=== PATIENT | female | born 1980 | race Caucasian/White ===

== ENCOUNTER 2017-01-24 12:29 | Emergency (ER) | payer BC, OTHER ==
[2017-01-24 12:41] VITALS: BP 123/88; PULSE 73; TEMP 98; BMI 25.2
--- NOTE | 2017-01-24 13:37 | PDOC ---
History of Present Illness - General Chief Complaint: Eye Problem Stated Complaint: PINK EYE Time Seen by Provider: 01/24/17 12:59 History Source: Patient Exam Limitations: No Limitations - History of Present Illness Initial Comments: 01/24/17 13:38 Mother came with daughter both with complaints of severe ALLERGIC rhinitis and ALLERGIC conjunctivitis. [facility] suffer from seasonal ALLERGIES this time of year but are progressively becoming worse. States has used [id number] Flonase, ophthalmic drops, and antihistamines with minimal resolved. States Kingsley having difficulty breathing and has some minor facial swelling. Denies fever, cough, but has excessive runny nose with clear drainage 01/24/17 13:42 01/24/17 13:44 01/24/17 14:49 Timing/Duration: unsure Severity: mild Associated Symptoms: reports: denies symptoms, headaches (sinus ), malaise. denies: cough, fever/chills Past History - Travel Traveled outside of the country in the last 30 days: No Close contact w/someone who was outside of country & ill: No - Past Medical History Allergies/Adverse Reactions: Allergies Allergy/AdvReac Type Severity Reaction Status Date / Time Penicillins Allergy Hives Verified 01/24/17 12:38 Home Medications: Ambulatory Orders Cetirizine HCl/Pseudoephedrine [Allergy+Congestion Relf-D Tab] 1 each PO DAILY # 30 tab 01/24/17 Prednisone [Deltasone -] 20 mg PO BID #10 tablet 01/24/17 Other medical history: none - Surgical History Abdominal Surgery: Yes (HERNIA) - Immunization History Immunization Up to Date: Yes - Psycho/Social/Smoking Cessation Hx Anxiety: No Suicidal Ideation: No Smoking Status: No Smoking History: Never smoked Have you smoked in the past 12 months: No Number of Cigarettes Smoked Daily: 0 Information on smoking cessation initiated: No Hx Alcohol Use: No Drug/Substance Use Hx: No Substance Use Type: None Review of Systems - Review of Systems Able to Perform ROS?: Yes Is the patient limited Liberian proficient: Yes Constitutional: Yes: Symptoms Reported, See HPI, Malaise. No: Fever HEENTM: Yes: Symptoms Reported, See HPI, Tearing, Nose Congestion Respiratory: Yes: Symptoms reported, See HPI, Cough. No: Wheezing Integumentary: Yes: Symptoms Reported, Pruritus All Other Systems: Reviewed and Negative *Physical Exam - Vital Signs Last Vital Signs Temp Pulse Resp BP Pulse Ox 98.0 F 73 18 123/88 100 01/24/17 12:39 01/24/17 12:39 01/24/17 12:39 01/24/17 12:39 01/24/17 12:39 - Physical Exam General Appearance: Yes: Nourished, Appropriately Dressed, Apparent Distress, Mild Distress HEENT: positive: DAJUAN (erythematous bilaterally with conjunctival edema and tearing, clear with swollen lids), TMs Normal (congested but landmarks easily visualized), Nasal Congestion, Rhinorrhea, Sinus Tenderness. negative: Normal ENT Inspection, Pharyngeal Erythema Neck: positive: Supple. negative: Tender Respiratory/Chest: positive: Lungs Clear, Normal Breath Sounds Extremity: positive: Normal Capillary Refill Integumentary: positive: Dry, Warm Medical Decision Making - Medical Decision Making 01/24/17 13:38 *DC/Admit/Observation/Transfer Diagnosis at time of Disposition: Allergic conjunctivitis and rhinitis Qualifiers: Laterality: bilateral Qualified Code(s): H10.13 - Acute atopic conjunctivitis, bilateral - Discharge Dispostion Disposition: HOME Condition at time of disposition: Stable Admit: No - Prescriptions Prescriptions: Cetirizine HCl/Pseudoephedrine [Allergy+Congestion Relf-D Tab] 1 each PO DAILY # 30 tab Prednisone [Deltasone -] 20 mg PO BID #10 tablet - Referrals Referrals: Saul Witt MD [Primary Care Provider] - - Patient Instructions Printed Discharge Instructions: DI for Allergic Rhinitis Additional Instructions: Rest, drink lots of fluids: Teas, water, soups Saltwater gargles. Consider humidifier in room at night Steamy showers/seem to face break up mucus Avoid contact with allergens, exposure to pollens, close windows on a windy day Lots of handwashing and good hygiene Continue [id number] medications for symptomatic relief- may use allergic eyedrops for itching I Continue antihistamines daily until pollen season is over; Zyrtec, Claritin, Jesenia during the daytime and Benadryl at nighttime as will make sleepy Tylenol or Motrin for fever and pain Followup with private physician in one to 2 days as needed Consider following up with an punch press feeder/concrete mixer operator for skin testing and possible allergy shots Return to emergency department for worsened symptoms, fevers, dehydration Continue prednisone 40 mg daily for 5 days - Post Discharge Activity Work/School Note: Back to Work
== END 2017-01-24 13:53 | disposition home or self-care (01) ==
LOC: JERFT 12:29
DX: H10.13 Acute atopic conjunctivitis, bilateral (principal); J30.2 Other seasonal allergic rhinitis
CPT/HCPCS: 99281-25

== ENCOUNTER 2017-02-14 18:35 | Emergency (ER) | payer BC, OTHER ==
[2017-02-14 18:50] VITALS: BP 102/65; PULSE 77; TEMP 98.6; BMI 26.0
--- NOTE | 2017-02-14 19:28 | PDOC ---
History of Present Illness - General Chief Complaint: Eye Problem Stated Complaint: EYE PROBLEM Time Seen by Provider: 02/14/17 19:21 History Source: Patient Exam Limitations: No Limitations - History of Present Illness Initial Comments: 02/14/17 19:21 36 yr female c/o itchy watery eyes with stringy discharge for one month as well as nasal congestion, sneezing. no fever or chills. Severity: mild Past History - Past Medical History Allergies/Adverse Reactions: Allergies Allergy/AdvReac Type Severity Reaction Status Date / Time Penicillins Allergy Hives Verified 02/14/17 18:50 Home Medications: Ambulatory Orders Cetirizine HCl/Pseudoephedrine [Allergy+Congestion Relf-D Tab] 1 each PO DAILY # 30 tab 01/24/17 Prednisone [Deltasone -] 20 mg PO BID #10 tablet 01/24/17 Ketotifen Fumarate 1 drop OP BID #1 bottle 02/14/17 Other medical history: allergies - Surgical History Abdominal Surgery: Yes (HERNIA) - Immunization History Immunization Up to Date: Yes - Psycho/Social/Smoking Cessation Hx Anxiety: No Suicidal Ideation: No Smoking Status: No Smoking History: Never smoked Have you smoked in the past 12 months: No Number of Cigarettes Smoked Daily: 0 Hx Alcohol Use: No Drug/Substance Use Hx: No Substance Use Type: None Review of Systems - Review of Systems Able to Perform ROS?: Yes Is the patient limited Wallisian proficient: No Constitutional: No: Symptoms Reported HEENTM: Yes: See HPI Respiratory: No: See HPI *Physical Exam - Vital Signs Last Vital Signs Temp Pulse Resp BP Pulse Ox 98.6 F 77 20 102/65 99 02/14/17 18:48 02/14/17 18:48 02/14/17 18:48 02/14/17 18:48 02/14/17 18:48 - Physical Exam General Appearance: Yes: Nourished, Appropriately Dressed HEENT: positive: EOMI, DAJUAN, Normal Voice, TMs Normal, Pharynx Normal, Other ( bilateral conjunctival erythema, watery white stringy discharge) Neck: positive: Supple Respiratory/Chest: positive: Lungs Clear, Normal Breath Sounds Cardiovascular: positive: Regular Rhythm, Regular Rate Gastrointestinal/Abdominal: positive: Normal Bowel Sounds, Soft Musculoskeletal: positive: Normal Inspection Extremity: positive: Normal Capillary Refill, Normal Inspection, Normal Range of Motion Integumentary: positive: Normal Color, Dry, Warm Neurologic: positive: Fully Oriented, Alert, Normal Mood/Affect, Normal Response , Motor Strength 01/29 Medical Decision Making - Medical Decision Making 02/14/17 19:23 cc: itchy watery eyes with stringing discharge no fever or chills will prescribe pataday eye drops pt takes claritin *DC/Admit/Observation/Transfer Diagnosis at time of Disposition: Allergic conjunctivitis of both eyes - Discharge Dispostion Disposition: HOME Condition at time of disposition: Good - Prescriptions Prescriptions: Ketotifen Fumarate 1 drop OP BID #1 bottle - Patient Instructions Additional Instructions: use the eye drops as prescribed wash hands frequently to prevent irritating your eyes follow with the automotive alignment specialist for follow up
== END 2017-02-14 19:41 | disposition home or self-care (01) ==
LOC: JERFT 18:35
DX: H10.13 Acute atopic conjunctivitis, bilateral (principal)
CPT/HCPCS: 99281-25

== ENCOUNTER 2017-04-17 19:51 | Emergency (ER) | payer BC, OTHER ==
[2017-04-17 20:02] VITALS: BP 115/71; PULSE 75; TEMP 98.7; BMI 26.2
--- NOTE | 2017-04-17 20:59 | PDOC ---
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 Dates may have increased her weight with her workouts, and performs frequent heavy lifting, strenuous exercise, and strong knee exercises. Has never had an injury to her knee that she is aware of, but does not feel unstable. No recent popping or instability Occurred: reports: last week Severity: reports: moderate Pain Location: reports: lower extremity (right knee ) Associated Symptoms (Fall): denies symptoms Past History - Travel Traveled outside of the country in the last 30 days: No Close contact w/someone who was outside of country & ill: No - Past Medical History Allergies/Adverse Reactions: Allergies Allergy/AdvReac Type Severity Reaction Status Date / Time Penicillins Allergy Hives Verified 04/17/17 20:01 Home Medications: Ambulatory Orders Cetirizine HCl/Pseudoephedrine [Allergy+Congestion Relf-D Tab] 1 each PO DAILY # 30 tab 01/24/17 Prednisone [Deltasone -] 20 mg PO BID #10 tablet 01/24/17 Clobetasol Propionate/Emoll [Clobetasol Emollient 0.05% Crm] 45 gm TP BID #1 cream..g. 02/14/17 Ketotifen Fumarate 1 drop OP BID #1 bottle 02/14/17 Naproxen [Naprosyn -] 500 mg PO BID #14 tablet 04/17/17 Other medical history: denies - Surgical History Abdominal Surgery: Yes (HERNIA) - Immunization History Immunization Up to Date: Yes - Psycho/Social/Smoking Cessation Hx Anxiety: No Suicidal Ideation: No Smoking Status: No Smoking History: Never smoked Have you smoked in the past 12 months: No Number of Cigarettes Smoked Daily: 0 Hx Alcohol Use: No Drug/Substance Use Hx: No Substance Use Type: None Review of Systems - Review of Systems Able to Perform ROS?: Yes Is the patient limited Costa Rican proficient: Yes Constitutional: Yes: See HPI. No: Symptoms Reported, Fever, Malaise HEENTM: Yes: Symptoms Reported, Nose Congestion Respiratory: Yes: Symptoms reported, See HPI, Cough (moist non productive ) Musculoskeletal: Yes: Symptoms Reported, See HPI, Joint Pain, Joint Swelling, Muscle Pain Integumentary: Yes: See HPI. No: Symptoms Reported All Other Systems: Reviewed and Negative *Physical Exam - Vital Signs Last Vital Signs Temp Pulse Resp BP Pulse Ox 98.7 F 75 18 115/71 99 04/17/17 19:59 04/17/17 19:59 04/17/17 19:59 04/17/17 19:59 04/17/17 19:59 - Physical Exam General Appearance: Yes: Appropriately Dressed, Apparent Distress HEENT: positive: DAJUAN, Normal ENT Inspection, TMs Normal, Pharynx Normal Neck: positive: Supple Musculoskeletal: positive: Normal Inspection, Decreased Range of Motion ( patient with tenderness reproduced to posterior fossa, however strong quadricep contraction and no true reproduced tenderness along the MCL or LCL. No crepitus or step-offs of patella, range of motion is intact and no obvious anterior drawer sign. Neurovascular intact distal to the knee.). 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 Recommended knee immobilizer, NSAIDs and follow-up with orthopedist *DC/Admit/Observation/Transfer Diagnosis at time of Disposition: Strain of right knee Qualifiers: Encounter type: initial encounter Qualified Code(s): S86.911A - Strain of unspecified muscle(s) and tendon(s) at lower leg level, right leg, initial encounter - Discharge Dispostion Disposition: HOME Condition at time of disposition: Stable Admit: No - Referrals Referrals: Saul Witt MD [Primary Care Provider] - George Miller MD [Staff Physician] - - Patient Instructions Printed Discharge Instructions: DI for Knee Pain Additional Instructions: Rest, ice to area on and off for 15 minutes 4-6 times a day Avoid heavy lifting or exercise until pain and swelling is resolved or until further directed Keep area highly elevated to reduce swelling Use splints/Lalito wrap as directed Followup with orthopedist in one to 2 days if not improving, if significantly improved may wait one week for followup with orthopedist May use Naprosyn 1 - 500 mg tablet every 8 hours as needed for swelling and pain - Post Discharge Activity Work/School Note: Back to Work
== END 2017-04-17 22:25 | disposition home or self-care (01) ==
LOC: JERFT 19:51
DX: S86.911A Strain of unspecified muscle(s) and tendon(s) at lower leg level, right leg, initial encounter (principal); X50.0XXA Overexertion from strenuous movement or load, initial encounter; X50.3XXA Overexertion from repetitive movements, initial encounter; Y93.B9 Activity, other involving muscle strengthening exercises; Y92.39 Other specified sports and athletic area as the place of occurrence of the external cause
CPT/HCPCS: 99281-25

== ENCOUNTER 2019-06-05 21:42 | Emergency (ER) | payer BC, OTHER ==
[2019-06-05 21:56] VITALS: BP 120/76; PULSE 79; TEMP 99.1; BMI 26.6
--- NOTE | 2019-06-05 21:57 | PDOC ---
Rapid Medical Evaluation Medical Evaluation: Allergies Allergy/AdvReac Type Severity Reaction Status Date / Time Penicillins Allergy Hives Verified 04/17/17 20:01 I have performed a brief in-person evaluation of this patient. The patient presents with a chief complaint of: c/o cyst along R lateral ankle since Apr this year; saw criminal justice social worker and was told it was ganglion cyst and had MRI done last week; states today site has been very painful and swelling increased today; took 2 alleve at 8 PM; denies trauma Pertinent physical exam findings: +swelling along R lateral malleolus; not erythematous, not warmth to touch I have ordered the following: xray The patient will proceed to the ED for further evaluation. 06/05/19 21:52
--- NOTE | 2019-06-05 23:34 | PDOC ---
History of Present Illness - General Chief Complaint: Edema Stated Complaint: CYST ON RT ANKLE Time Seen by Provider: 06/05/19 21:52 History Source: Patient, Old Records Exam Limitations: No Limitations - History of Present Illness Initial Comments: 06/06/19 00:11 HISTORY OF PRESENT ILLNESS: 39-year-old woman with denies medical history presents emergency department for evaluation of right ankle pain which has worsened over months. Patient is currently under the care of a screen writer for this complaint. Patient was told is a ganglion cysts but was sent for an MRI for confirmation testing. Patient reports today at approximately 4:00 pain suddenly increased in made it difficult for her to walk. Patient reports increased swelling to the right lateral ankle. Patient has the MRI report from her test and is scheduled to follow-up with her screen writer in 2 days. No recent travel or sick contacts. PAST MEDICAL HISTORY: Denies past medical history SURGICAL HISTORY: Denies ALLERGIES: N REVIEW OF SYSTEMS General/Constitutional: Denies fever or chills. Denies weakness, weight change. HEENT: Denies change in vision. Denies ear pain or discharge. Denies sore throat. Cardiovascular: Denies chest pain or shortness of breath. Respiratory: Denies cough, wheezing, or hemoptysis. Gastrointestinal: Denies nausea, vomiting, diarrhea or constipation. Denies rectal bleeding. Genitourinary: Denies dysuria, frequency, or change in urination. Musculoskeletal: see HPI Skin and breasts: Denies rash or easy bruising. Neurologic: Denies headache, vertigo, loss of consciousness, or loss of sensation. Psychiatric: Denies depression or anxiety. Endocrine: Denies increased thirst. Denies abnormal weight change. Hematologic/Lymphatic: Denies anemia, easy bleeding, or history of blood clots. Allergic/Immunologic: Denies hives or skin allergy. Denies latex allergy. PHYSICAL EXAM General Appearance: Well-appearing, appropriately dressed. No apparent distress , no intoxication. Respiratory/Chest: Lungs CTAB. No shortness of breath, chest tenderness, respiratory distress, accessory muscle use. No crackles, rales, rhonchi, stridor , wheezing, dullness Cardiovascular: RRR. S1, S2. No JVD, murmur, bradycardia, tachycardia. Vascular Pulses: Dorsalis-Pedis (R): 2+, Dorsalis-Pedis (L): 2+ Musculoskeletal/Extremities: Swelling and tenderness present over the right lateral malleolus. No subcutaneous emphysema, crepitus, deformity or step-off is present. Full flexion and dorsiflexion of the ankle noted without difficulty. Neurovascular intact. Integumentary: Erythema present over the right lateral malleolus. No induration or fluctuance present. Past History - Past Medical History Allergies/Adverse Reactions: Allergies Allergy/AdvReac Type Severity Reaction Status Date / Time Penicillins Allergy Hives Verified 06/05/19 21:54 Home Medications: Ambulatory Orders Cetirizine HCl/Pseudoephedrine [Allergy+Congestion Relf-D Tab] 1 each PO DAILY # 30 tab 01/24/17 predniSONE [Deltasone -] 20 mg PO BID #10 tablet 01/24/17 Clobetasol Propionate/Emoll [Clobetasol Emollient 0.05% Crm] 45 gm TP BID #1 cream..g. 02/14/17 Ketotifen Fumarate 1 drop OP BID #1 bottle 02/14/17 Naproxen [Naprosyn -] 500 mg PO BID #14 tablet 04/17/17 Colchicine 0.6 mg PO TID #15 tablet 06/05/19 predniSONE [Deltasone -] 40 mg PO DAILY #10 tablet 06/05/19 COPD: No - Surgical History Abdominal Surgery: Yes (HERNIA) - Immunization History Immunization Up to Date: Yes - Suicide/Smoking/Psychosocial Hx Smoking Status: No Smoking History: Never smoked Have you smoked in the past 12 months: No Number of Cigarettes Smoked Daily: 0 Hx Alcohol Use: No Drug/Substance Use Hx: No Substance Use Type: None *Physical Exam - Vital Signs Last Vital Signs Temp Pulse Resp BP Pulse Ox 99.1 F 79 18 120/76 100 06/05/19 21:54 06/05/19 21:54 06/05/19 21:54 06/05/19 21:54 06/05/19 21:54 Medical Decision Making - Medical Decision Making 06/06/19 00:14 A/P: 39-year-old woman with atraumatic acute on chronic right ankle pain starting at approximately 4:00 this afternoon 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 I will treat patient for an acute on chronic gout flare with prednisone 40 mg orally now and colchicine 1.2 mg orally now. Discharge patient to follow-up with her screen writer as previously scheduled. I' ll give the patient a prescription for prednisone 40 mg orally to be taken daily as an outpatient as well as colchicine 0.6 mg to be taken 3 times a day. Portions of this note have been documented using voice recognition software. As a result, errors may occur in the tanner rotary drum continuous process process. Effort has been made to correct all grammatical and tanner rotary drum continuous process error, but some may have been missed. *DC/Admit/Observation/Transfer Diagnosis at time of Disposition: Gout Qualifiers: Gout site: ankle Gout etiology: unspecified cause Chronicity: unspecified Laterality: right Qualified Code(s): M10.9 - Gout, unspecified - Discharge Dispostion Disposition: HOME Condition at time of disposition: Stable Decision to Admit order: No - Prescriptions Prescriptions: Colchicine 0.6 mg PO TID #15 tablet predniSONE [Deltasone -] 40 mg PO DAILY #10 tablet - Referrals Referrals: Mario Engel MD [Primary Care Provider] - - Patient Instructions Printed Discharge Instructions: DI for Gout Additional Instructions: Take colchicine 0.6 mg 3 times a day for pain. Take prednisone 40 mg daily until evaluated by podiatry Keep previously scheduled appointment with podiatry on Wednesday. Return to emergency department for any new or worsening symptoms Thank you very much for choosing us to provide emergent health care needs. - Post Discharge Activity
[2019-06-05] MEDS ORDERED: predniSONE 20 MG TABLET (UD) PO ONE (23:49)
[2019-06-05] MEDS ORDERED: COLCHICINE 0.6 MG CAP PO ONE (23:49)
[2019-06-06] MEDS ORDERED: predniSONE 20 MG TABLET (UD) ONE (01:22)
[2019-06-06] MEDS ORDERED: COLCHICINE 0.6 MG CAP ONE (01:22)
== END 2019-06-06 01:32 | disposition home or self-care (01) ==
LOC: JERFT 21:42 → JER 21:42
DX: M1A.9XX1 Chronic gout, unspecified, with tophus (tophi) (principal)
CPT/HCPCS: 73610-TC-RT-FY; 73630-TC-RT-FY; 99281-25

== ENCOUNTER 2021-12-19 19:36 | Emergency (ER) | payer BC, OTHER ==
[2021-12-19 19:45] VITALS: BP 142/90; PULSE 73; TEMP 97; BMI 26.2
[2021-12-19] MEDS ORDERED: KETOROLAC TROMETHAMINE 60 MG/2 ML VIAL IM ONE (20:34)
[2021-12-19] MEDS ORDERED: KETOROLAC TROMETHAMINE 60 MG/2 ML VIAL ONE (20:39)
== END 2021-12-19 21:34 | disposition home or self-care (01) ==
LOC: JERFT 19:36
PROC: 3E023GC Introduction of Other Therapeutic Substance into Muscle, Percutaneous Approach (ICD-10-PCS; principal; 2021-12-19)
DX: M54.2 Cervicalgia (principal)
CPT/HCPCS: 99284-25

== ENCOUNTER 2022-07-26 07:44 | Emergency (ER) | payer BC, OTHER ==
[2022-07-26 08:05] VITALS: BP 130/80; PULSE 78; RESP 18; TEMP 98.7; BMI 27.8
[2022-07-26] MEDS ORDERED: KETOROLAC TROMETHAMINE 30 MG/1 ML VIAL IM ONE (08:19)
[2022-07-26] MEDS ORDERED: KETOROLAC TROMETHAMINE 30 MG/1 ML VIAL ONE (08:20)
== END 2022-07-26 09:24 | disposition home or self-care (01) ==
LOC: JER 07:44
PROC: 3E0233Z Introduction of Anti-inflammatory into Muscle, Percutaneous Approach (ICD-10-PCS; principal; 2022-07-26)
DX: J01.10 Acute frontal sinusitis, unspecified (principal)
CPT/HCPCS: 0241U-QW; 71046-TC-FY; 99284-25

== ENCOUNTER 2022-12-24 19:59 | Emergency (ER) | payer BC, OTHER ==
[2022-12-24 20:05] VITALS: BMI 27.2
[2022-12-24] MEDS ORDERED: KETOROLAC TROMETHAMINE 15 MG/ML VIAL IM ONE (21:06)
[2022-12-24] MEDS ORDERED: ONDANSETRON *ODT* 4 MG TABLET ONE (21:19)
[2022-12-24] MEDS ORDERED: ONDANSETRON *ODT* 4 MG TABLET SL ONE (21:19)
[2022-12-24] MEDS ORDERED: KETOROLAC TROMETHAMINE 15 MG/ML VIAL ONE (21:20)
[2022-12-24] MEDS ORDERED: LIDOCAINE PATCH REMOVAL MC SCH (22:00)
[2022-12-24 22:09] LABS: BASO % 0.6 % (0-2.0); EOS % 2.2 % (0-4.5); HEMATOCRIT 39.2 % (32.4-45.2); HEMOGLOBIN 13.2 GM/dL (10.7-15.3); LYMPH % 28.9 % (8-40); MCH 28.8 pg (25.7-33.7); MCHC 33.6 g/dl (32.0-36.0); MEAN CELL VOLUME 85.8 fl (80-96); MEAN PLT VOLUME 7.5 fl (7.5-11.1); MONO % 4.6 % (3.8-10.2); NEUT % 63.7 % (42.8-82.8); PLATELET COUNT 332 10^3/uL (134-434); RBC 4.57 M/mm3 (3.60-5.2); RDW 13.7 % (11.6-15.6); WHITE BLOOD COUNT 7.1 K/mm3 (4.0-10.0)
[2022-12-24] MEDS ORDERED: LIDOCAINE 5% TOPICAL PATCH TP ONE (22:16)
[2022-12-24] MEDS ORDERED: LIDOCAINE 5% TOPICAL PATCH ONE (22:26)
[2022-12-24 22:36] LABS: BLOOD UREA NITROGEN 13.1 mg/dL (7-18); CALCIUM 8.5 mg/dL (8.5-10.1)
[2022-12-24 22:37] LABS: ALBUMIN 3.7 g/dl (3.4-5.0)
[2022-12-24 22:40] LABS: CREATININE 0.7 mg/dL (0.55-1.3)
[2022-12-24 22:41] LABS: BILIRUBIN,TOTAL 0.2 mg/dL (0.2-1); TOT PROT 7.4 g/dl (6.4-8.2)
[2022-12-24 23:10] VITALS: BP 110/72; PULSE 89; RESP 19; TEMP 97.8
[2022-12-24 23:25] LABS: EPI CELLS >36 /uL (0-25.1); HCG,QUALITATIVE URINE Negative; HYALINE CASTS 3 /uL (0-3.1); URINE APPEARANCE CLOUDY; URINE BACTERIA 140 /uL (0-1359); URINE BILIRUBIN NEGATIVE (NEGATIVE); URINE COLOR YELLOW; URINE GLUCOSE (UA) NEGATIVE (NEGATIVE); URINE KETONE NEGATIVE (NEGATIVE); URINE LEUK ESTERASE TRACE (NEGATIVE); URINE NITRITE NEGATIVE (NEGATIVE); URINE PROTEIN NEGATIVE (NEGATIVE); URINE RBC 5 /uL (0-23.9); URINE UROBILINOGEN 0.2 mg/dL (0.2-1.0); URINE WBC 34 /uL (0-25.8)
== END 2022-12-25 00:20 | disposition home or self-care (01) ==
LOC: JERFT 19:59 → JER 19:59
PROC: 3E0233Z Introduction of Anti-inflammatory into Muscle, Percutaneous Approach (ICD-10-PCS; principal; 2022-12-24)
DX: M54.50 Low back pain, unspecified (principal); M54.6 Pain in thoracic spine; M54.2 Cervicalgia; R11.2 Nausea with vomiting, unspecified
CPT/HCPCS: 36415; 80053; 81003; 83690; 84703; 85025; 87086; 99284-25; Q0162

== ENCOUNTER 2023-09-05 19:18 | Emergency (ER) | payer BC, OTHER ==
[2023-09-05 19:29] VITALS: BP 138/86; PULSE 75; RESP 18; TEMP 98; BMI 27.8
[2023-09-05] MEDS ORDERED: ACETAMINOPHEN 1000 MG/100 ML BAG IVPB ONE (21:58)
[2023-09-05] MEDS ORDERED: ACETAMINOPHEN INJECTION 100 ML IVPB ONE (22:08)
[2023-09-05 22:14] LABS: BASO % 0.6 % (0-2.0); HEMATOCRIT 37.9 % (32.4-45.2); HEMOGLOBIN 12.1 GM/dL (10.7-15.3); LYMPH % 29.7 % (8-40); MCH 28.4 pg (25.7-33.7); MEAN CELL VOLUME 88.8 fl (80-96); MEAN PLT VOLUME 7.9 fl (7.5-11.1); NEUT % 60.7 % (42.8-82.8); PLATELET COUNT 385 10^3/uL (134-434); RBC 4.26 M/mm3 (3.60-5.2); RDW 13.7 % (11.6-15.6); WHITE BLOOD COUNT 6.1 K/mm3 (4.0-10.0)
[2023-09-05 22:32] LABS: POTASSIUM 3.7 mmol/L (3.5-5.1)
[2023-09-05 22:34] LABS: CALCIUM 8.7 mg/dL (8.5-10.1)
[2023-09-05 22:35] LABS: ALBUMIN 3.7 g/dl (3.4-5.0); BLOOD UREA NITROGEN 11.9 mg/dL (7-18)
[2023-09-05 22:39] LABS: CREATININE 0.7 mg/dL (0.55-1.3)
[2023-09-05 22:40] LABS: BILIRUBIN,TOTAL 0.3 mg/dL (0.2-1); TOT PROT 7.1 g/dl (6.4-8.2)
== END 2023-09-05 23:25 | disposition home or self-care (01) ==
LOC: JER 19:18
PROC: 3E033NZ Introduction of Analgesics, Hypnotics, Sedatives into Peripheral Vein, Percutaneous Approach (ICD-10-PCS; principal; 2023-09-05)
DX: N93.9 Abnormal uterine and vaginal bleeding, unspecified (principal)
CPT/HCPCS: 36415; 80053; 84703; 85025; 86850; 86900; 86901; 99284-25